=== PATIENT | male | born 1945 | race Caucasian/White ===

== ENCOUNTER 2022-02-04 08:23 | Outpatient (CLI) | payer OTHER | END 2022-02-04 08:24 | disposition home or self-care (01) | LOC: CSHWCC 08:23 | PROVIDERS: ATTEND Nurse Practitioner Family | DX: S81.801D Unspecified open wound, right lower leg, subsequent encounter (principal); R60.0 Localized edema | CPT/HCPCS: 29581; 97139; G0463; 99204 ==

== ENCOUNTER 2022-02-11 09:24 | Outpatient (CLI) | payer MEDICARE, MEDICAID | END 2022-02-11 09:25 | disposition home or self-care (01) | LOC: CSHWCC 09:24 | PROVIDERS: ATTEND Nurse Practitioner Family | DX: S81.801D Unspecified open wound, right lower leg, subsequent encounter (principal); R60.0 Localized edema | CPT/HCPCS: 29581 ==

== ENCOUNTER 2022-02-18 08:05 | Outpatient (CLI) | payer MEDICARE, MEDICAID | END 2022-02-18 08:06 | disposition home or self-care (01) | LOC: CSHWCC 08:05 | PROVIDERS: ATTEND Nurse Practitioner Family | DX: I87.312 Chronic venous hypertension (idiopathic) with ulcer of left lower extremity (principal); L97.322 Non-pressure chronic ulcer of left ankle with fat layer exposed; S81.801D Unspecified open wound, right lower leg, subsequent encounter; R60.0 Localized edema | CPT/HCPCS: 99213; G0463 ==

== ENCOUNTER 2022-02-25 08:52 | Outpatient (CLI) | payer MEDICARE, OTHER | END 2022-02-25 08:53 | disposition home or self-care (01) | LOC: CSHWCC 08:52 | PROVIDERS: ATTEND Nurse Practitioner Family | DX: R60.0 Localized edema (principal) ==

== ENCOUNTER 2022-03-04 09:03 | Outpatient (CLI) | payer MEDICARE, MEDICAID | END 2022-03-04 09:04 | disposition home or self-care (01) | LOC: CSHWCC 09:03 | PROVIDERS: ATTEND Nurse Practitioner Family | DX: R60.0 Localized edema (principal) | CPT/HCPCS: 97139; G0463; 99213 ==

== ENCOUNTER 2022-03-11 08:51 | Outpatient (CLI) | payer MEDICARE, MEDICAID | END 2022-03-11 08:52 | disposition home or self-care (01) | LOC: CSHWCC 08:51 | PROVIDERS: ATTEND Nurse Practitioner Family | DX: R60.0 Localized edema (principal) ==

== ENCOUNTER 2022-04-01 09:31 | Outpatient (CLI) | payer OTHER | END 2022-04-01 09:32 | disposition home or self-care (01) | LOC: CSHWCC 09:31 | PROVIDERS: ATTEND Nurse Practitioner Family | DX: R60.0 Localized edema (principal) ==

== ENCOUNTER 2022-04-29 09:16 | Outpatient (CLI) | payer OTHER | END 2022-04-29 09:17 | disposition home or self-care (01) | LOC: CSHWCC 09:16 | PROVIDERS: ATTEND Family Medicine | DX: R60.0 Localized edema (principal) | CPT/HCPCS: 99213; G0463 ==

== ENCOUNTER 2022-05-20 09:40 | Outpatient (CLI) | payer OTHER | END 2022-05-20 09:41 | disposition home or self-care (01) | LOC: CSHWCC 09:40 | PROVIDERS: ATTEND Preventive Medicine Undersea and Hyperbaric Medicine | DX: R60.0 Localized edema (principal) ==

== ENCOUNTER 2022-09-13 14:11 | Outpatient (CLI) | payer OTHER | END 2022-09-13 14:12 | disposition home or self-care (01) | LOC: CSHWCC 14:11 | PROVIDERS: ATTEND Nurse Practitioner Family | DX: R60.0 Localized edema (principal); B35.8 Other dermatophytoses ==

== ENCOUNTER 2023-09-23 08:04 | Outpatient (CLI) | payer OTHER, MEDICAID | END 2023-09-23 08:05 | disposition home or self-care (01) | LOC: CSHWCC 08:04 | PROVIDERS: ATTEND Preventive Medicine Undersea and Hyperbaric Medicine | DX: I87.323 Chronic venous hypertension (idiopathic) with inflammation of bilateral lower extremity (principal); R60.0 Localized edema | CPT/HCPCS: 99203; G0463 ==